=== PATIENT | male | born 2000 | race Caucasian/White ===

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

== ENCOUNTER 2021-02-02 17:53 | Inpatient (IN) | payer OTHER ==
[~2021-02-02] VITALS: Ht 162.6 cm; Wt 99.8 kg
[~2021-02-02 17:53] MED LIST: AUGMENTIN 500-1 EACH PO; BACTRIM DS TAB1 EACH PO; BENADRYL 25MG C25 MG PO; CEPHALEXIN500 M1 PO; COLACE100 MG PO; LODINE CAP 300300 MG PO; LORTAB 5-325 M1 EACH PO; NAPROSYN500 MG PO; PREDNISONE 50 M50 MG PO; ZANTAC150 MG PO; ZITHROMAX250 MG PO
[2021-02-02 18:50] LABS: HEMOGLOBIN 13.2 gm/dl (14.0-17.5); RED BLOOD COUNT 4.45 M/UL (4.20-5.50); WHITE BLOOD COUNT 21.3 K/UL (4.5-11.0)
[2021-02-02 19:10] LABS: BUN/CREATININE RATIO 14 (0-10)
--- NOTE | 2021-02-03 17:53 | NUR ---
POST OF HOLDEN C/D/I
--- NOTE | 2021-02-03 19:32 | NUR ---
CALLED WOUND CULTURE RESULTS TO DR. XIN HUGHES
[2021-02-04 05:29] LABS: RED BLOOD COUNT 4.06 M/UL (4.20-5.50); WHITE BLOOD COUNT 17.1 K/UL (4.5-11.0)
[2021-02-04 05:47] LABS: BUN/CREATININE RATIO 12 (0-10)
[2021-02-05 05:28] LABS: HEMOGLOBIN 11.5 gm/dl (14.0-17.5); RED BLOOD COUNT 3.93 M/UL (4.20-5.50)
[2021-02-05 05:38] LABS: BUN/CREATININE RATIO 8 (0-10)
[2021-02-05 05:40] LABS: WHITE BLOOD COUNT 12.8 K/UL (4.5-11.0)
--- NOTE | 2021-02-06 04:11 | NUR ---
02/05/212134 DRSG TO LEFT GROIN REPLACE DUE TO CLEAR YELLOWISH DRAINAGE. DRSG WAS COMING OFF. PAKING WAS NEVER TOUCHED AT THIS TIME. 4X4 AND ABD PAD APPLIED AND SECURED WITH MEFIX.
[2021-02-06 06:47] LABS: HEMOGLOBIN 12.7 gm/dl (14.0-17.5); WHITE BLOOD COUNT 11.9 K/UL (4.5-11.0)
[2021-02-06 06:48] LABS: RED BLOOD COUNT 4.58 M/UL (4.20-5.50)
--- NOTE | 2021-02-06 14:09 | NUR ---
PATIENT ASSESSED AND NO NEW FINDINGS, HE HAS A INCISION TO HIS LEFT GROIN AND WALKS WITH A SLIGHT LIMP ON THE SAME SIDE, NO NEW COMPLAINTS.
[2021-02-06 14:45] LABS: BUN/CREATININE RATIO 6 (0-10)
[2021-02-06] MEDS ORDERED: TYLENOL 8 HOUR650 MG PO (15:30)
[2021-02-06] MEDS ORDERED: AUGMENTIN 875-1 EACH PO (15:30)
== END 2021-02-06 16:20 | disposition home or self-care (01) | DRG 854 ==
LOC: ER1 17:53 → CDU 21:31 → M/S 21:31
PROVIDERS: Internal Medicine Infectious Disease; Physician Assistant Medical; Surgery; ADMIT Internal Medicine
PROC: 0J9C0ZZ Drainage of Pelvic Region Subcutaneous Tissue and Fascia, Open Approach (ICD-10-PCS; 2021-02-03)
PROC: 0JBC0ZZ Excision of Pelvic Region Subcutaneous Tissue and Fascia, Open Approach (ICD-10-PCS; principal; 2021-02-03 13:00)
DX: A41.9 Sepsis, unspecified organism (principal); L02.214 Cutaneous abscess of groin; E11.52 Type 2 diabetes mellitus with diabetic peripheral angiopathy with gangrene; I96 Gangrene, not elsewhere classified; N17.9 Acute kidney failure, unspecified; D64.9 Anemia, unspecified; E66.01 Morbid (severe) obesity due to excess calories; Z20.822 Contact with and (suspected) exposure to COVID-19; J98.2 Interstitial emphysema; E11.65 Type 2 diabetes mellitus with hyperglycemia; F17.200 Nicotine dependence, unspecified, uncomplicated; N28.9 Disorder of kidney and ureter, unspecified; E87.6 Hypokalemia; Z90.49 Acquired absence of other specified parts of digestive tract; Z83.3 Family history of diabetes mellitus
CPT/HCPCS: 10060; 36415; 80048; 80053; 80202; 82607; 82746; 83036; 83540; 83550; 83605; 84132; 85025; 85045; 87040; 87070; 87081; 87205; 96365; 96366; 96367; 96375; 99282; 99284; J0295; J1100; J1650; J2001; J2250; J2270; J2405; J2543; J2704; J3010; J3370; J7030; J7070; J7120; Q9967; U0002

== ENCOUNTER 2021-02-07 13:31 | Emergency (ER) | payer OTHER ==
[~2021-02-07 13:31] MED LIST changes: +AUGMENTIN 875-1 EACH PO; +TYLENOL 8 HOUR650 MG PO
== END 2021-02-07 15:35 | disposition home or self-care (01) ==
LOC: ER1 13:31
DX: Z48.00 Encounter for change or removal of nonsurgical wound dressing (principal); Z90.89 Acquired absence of other organs
CPT/HCPCS: 99282

== ENCOUNTER 2021-05-10 00:56 | Emergency (ER) | payer OTHER ==
[2021-05-10 01:31] LABS: HEMOGLOBIN 13.2 gm/dl (14.0-17.5); RED BLOOD COUNT 4.45 M/UL (4.20-5.50)
[2021-05-10] MEDS ORDERED: ZOFRAN ODT 4 MG4 MG SL (05:06)
== END 2021-05-10 05:13 | disposition home or self-care (01) ==
LOC: ER1 00:56
PROVIDERS: Emergency Medicine
DX: E86.0 Dehydration (principal); F17.200 Nicotine dependence, unspecified, uncomplicated
CPT/HCPCS: 80053; 83605; 83690; 85025; 96374; 99284; J2405; Q9967